=== PATIENT | male | born 1980 | race Caucasian/White ===

== ENCOUNTER → 2022-02-26 | Outpatient (CLI) | payer OTHER ==
[~2022-02-26] MED LIST: GASTROGRAFIN SOLUTION 30ML (Q9963) As Ordered ONE; ISOVUE-370 76% 100ML VIAL As Ordered ONE
== END ==
LOC: M RAD 16:14
PROVIDERS: ATTEND Specialist
DX: C81.90 Hodgkin lymphoma, unspecified, unspecified site (principal)
CPT/HCPCS: 70491; 71260; 74177; Q9963; Q9967

== ENCOUNTER → 2025-02-02 | Outpatient (REF) | payer OTHER ==
[2025-02-02 15:29] LABS: BASO % 0.5 % (0.0-1.0); EOS # 0.1 10^3/uL (0.0-0.5); EOS % 1.8 % (0.0-3.0); HEMATOCRIT 44.8 % (42.0-52.0); LYMPH # 2.1 10^3/uL (1.5-5.0); LYMPH % 27.2 % (24.0-44.0); MEAN CORPUSCULAR HEMOGLOBIN 31.4 pg (27.0-33.0); MEAN CORPUSCULAR HGB CONC 33.5 g/dl (32.0-36.5); MEAN CORPUSCULAR VOLUME 93.7 fl (80.0-96.0); MONO # 0.6 10^3/uL (0.0-0.8); MONO % 7.1 % (2.0-8.0); NEUTROPHILS # 4.9 10^3/uL (1.5-8.5); NEUTROPHILS % 63.1 % (36.0-66.0); PLATELET COUNT, AUTOMATED 323 10^3/uL (150-450); RED BLOOD COUNT 4.78 10^6/uL (4.30-6.10); WHITE BLOOD COUNT 7.8 10^3/uL (4.0-10.0)
[2025-02-02 15:37] LABS: ALBUMIN 4.5 G/DL (3.2-5.2); ALKALINE PHOSPHATASE 82 U/L (40-129); ALT/SGPT 50 U/L (7.0-40); AST/SGOT 27 U/L (<34); BILIRUBIN,TOTAL 0.4 MG/DL (0.3-1.2); BLOOD UREA NITROGEN 18 MG/DL (9-23); CALCIUM LEVEL 9.4 MG/DL (8.5-10.1); CARBON DIOXIDE LEVEL 25 MMOL/L (20-31); CHLORIDE LEVEL 104 MMOL/L (98-107); CHOLESTEROL LEVEL 253 MG/DL (<200); CHOLESTEROL RISK RATIO 5.27 (<5); CREATININE FOR GFR 0.81 MG/DL (0.70-1.30); GLOMERULAR FILTRATION RATE > 90.0 (>60); GLUCOSE, FASTING 94 MG/DL (60-100); LDL CHOLESTEROL 159.4 MG/DL (<100); POTASSIUM SERUM 4.4 MMOL/L (3.5-5.1); PSA SCREENING 1.66 NG/ML (< 4.00); SODIUM LEVEL 138 MMOL/L (136-145); TOTAL PROTEIN 7.4 G/DL (5.7-8.2); TRIGLYCERIDES LEVEL 228 MG/DL (<150)
[2025-02-02 15:52] LABS: HEMOGLOBIN A1c 5.3 % (4.0-6.0)
[2025-02-02 16:09] LABS: HIV 1&2 SCREEN NEGATIVE (NEGATIVE)
[2025-02-02 16:17] LABS: HEPATITIS C VIRUS ABY INDEX 0.03 INDEX (<0.8)
== END ==
LOC: M SFHCPLAZ 11:30
PROVIDERS: ATTEND Family Medicine
DX: Z80.42 Family history of malignant neoplasm of prostate (principal); Z85.72 Personal history of non-Hodgkin lymphomas; Z00.00 Encounter for general adult medical examination without abnormal findings; Z11.9 Encounter for screening for infectious and parasitic diseases, unspecified

== ENCOUNTER → 2025-02-26 | Outpatient (CLI) | payer OTHER ==
[~2025-02-26] VITALS: Ht 175.3 cm; Wt 106.8 kg
[2025-02-26 09:20] VITALS: TEMP 97.6
[2025-02-26] MEDS: ceFAZolin SODIUM 2 GM in DEXTROSE 5% (D5W) ADV/MINI-BAG 50 ML IV ONE (09:45)
[2025-02-26] MEDS: NS (Normal Saline) 0.9% 1,000 ML IV SCH (09:46)
[2025-02-26] MEDS: MIDAZOLAM INJ 2MG/2ML VIAL IV PRN (11:04)
[2025-02-26] MEDS: fentaNYL 100 MCG/2 ML INJECTION IV PRN (11:05)
[2025-02-26] MEDS: LIDOCAINE 1% MDV 20ML VIAL SC SCH (11:39)
[2025-02-26 12:15] VITALS: BP 121/77; O2SAT 96
== END ==
LOC: M IRPRO 09:13
PROVIDERS: ATTEND Family Medicine
DX: Z95.828 Presence of other vascular implants and grafts (principal); C85.9A Non-Hodgkin lymphoma, unspecified, in remission
CPT/HCPCS: 36590; 99152; 99153; J0690; J2250; J3010

== ENCOUNTER → 2025-05-12 | Outpatient (CLI) | payer OTHER | LOC: M PLALAB 10:53 | PROVIDERS: ATTEND Student in an Organized Health Care Education/Training Program | DX: R21 Rash and other nonspecific skin eruption (principal) ==